=== PATIENT | male | born 1965 | race African-American/Black ===

== ENCOUNTER 2018-01-05 15:57 | Emergency (ER) | payer SELFPAY ==
[2018-01-05] MEDS ORDERED: HYDROCODONE/ACETAMINOPHEN 5-325 MG TABLET PO ONE (17:54)
--- NOTE | 2018-01-05 17:59 | ER Document Report ---
ED Medical Screen (RME) - General Chief Complaint: Low Back Pain Stated Complaint: BACK PAIN, LEG NUMBNESS Time Seen by Provider: 01/05/18 17:53 Notes: Patient states when he was driving into work this morning he felt a sudden severe pain in his low back and now he has numbness in both lower extremities that make walking difficult. He denies any problems with urination or bowel movement. He denies any known injuries. No recent fevers. He states he does have a history of degenerative disc disease in his neck that required surgery. TRAVEL OUTSIDE OF THE [place] IN LAST 30 DAYS: No - Related Data Allergies/Adverse Reactions: No Known Allergies Allergy (Verified 03/12/14 15:35) Past Medical History - Social History Chew tobacco use (# tins/day): No Frequency of alcohol use: Occasional Drug Abuse: None - Past Medical History Cardiac Medical History: Reports: Hx Hypertension Pulmonary Medical History: Denies: Hx Tuberculosis Renal/ Medical History: Denies: Hx Peritoneal Dialysis GI Medical History: Reports: Hx Gastroesophageal Reflux Disease Psychiatric Medical History: Denies: Hx Depression Past Surgical History: Reports: Hx Orthopedic Surgery - cervical - Immunizations Hx Diphtheria, Pertussis, Tetanus Vaccination: Yes Physical Exam - Vital signs Vitals: Temp Pulse Resp BP Pulse Ox 98.8 F 95 16 121/63 93 01/05/18 16:38 01/05/18 16:38 01/05/18 16:38 01/05/18 16:38 01/05/18 16:38 Course - Vital Signs Vital signs: Temp Pulse Resp BP Pulse Ox 98.8 F 95 16 121/63 93 01/05/18 16:38 01/05/18 16:38 01/05/18 16:38 01/05/18 16:38 01/05/18 16:38
--- NOTE | 2018-01-05 18:21 | RADIOLOGY REPORT (SQ) ---
EXAM DESCRIPTION: L SPINE 2 VIEWS COMPLETED DATE/TIME: 01/05/2018 6:12 pm REASON FOR STUDY: pain COMPARISON: None. NUMBER OF VIEWS: Two views. TECHNIQUE: AP and lateral radiographic images acquired of the lumbar spine. LIMITATIONS: None. FINDINGS: MINERALIZATION: Normal. SEGMENTATION: Normal. No transitional anatomy. ALIGNMENT: Normal. VERTEBRAE: Maintained height. No fracture or worrisome bone lesion. DISCS: Scattered osteophytes. No disc space narrowing. POSTERIOR ELEMENTS: Pedicles and facets are intact. No pars defect or posterior arch defects. HARDWARE: None in the spine. PARASPINAL SOFT TISSUES: Normal. PELVIS: Intact as visualized. No fractures or worrisome bone lesions. SI joints intact. OTHER: No other significant finding. IMPRESSION: No acute findings. Mild degenerative changes. TECHNICAL DOCUMENTATION: JOB ID: [id number] [employer]- All Rights Reserved Reading location - IP/workstation name: [email or web address]
[2018-01-05 18:31] LABS: ABSOLUTE BASOPHILS # (AUTO) 0.1 10^3/uL (0.0-0.2); ABSOLUTE EOSINOPHILS # (AUTO) 0.2 10^3/uL (0.0-0.6); ABSOLUTE LYMPHOCYTES (AUTO) 2.6 10^3/uL (0.5-4.7); ABSOLUTE MONOCYTES (AUTO) 0.6 10^3/uL (0.1-1.4); ABSOLUTE NEUT (AUTO) 5.5 10^3/uL (1.7-8.2); BASOPHILS % (AUTO) 0.6 % (0-2); EOSINOPHILS % (AUTO) 1.7 % (0-6); HEMATOCRIT 43.3 % (37.9-51.0); HEMOGLOBIN 14.8 g/dL (13.5-17.0); LYMPHOCYTES % (AUTO) 28.8 % (13-45); MEAN CORPUSCULAR HEMOGLOBIN 27.1 pg (27.0-33.4); MEAN CORPUSCULAR HGB CONC 34.2 g/dL (32.0-36.0); MEAN CORPUSCULAR VOLUME 79 fl (80-97); MONOCYTES % (AUTO) 6.6 % (3-13); PLATELET COUNT 283 10^3/uL (150-450); RED BLOOD COUNT 5.48 10^6/uL (4.35-5.55); RED CELL DISTRIBUTION WIDTH 13.9 % (11.5-14.0); SEGMENTED NEUTROPHILS % (AUTO) 62.3 % (42-78); TOTAL CELLS COUNTED % (AUTO) 100 %; WHITE BLOOD COUNT 8.9 10^3/uL (4.0-10.5)
[2018-01-05 18:54] LABS: ALANINE AMINOTRANSFERASE 53 U/L (21-72); ALBUMIN 4.5 g/dL (3.5-5.0); ALCOHOL 155 mg/dL (NONE DETECTED); ALKALINE PHOSPHATASE 68 U/L (38-126); ASPARTATE AMINO TRANSFERASE 35 U/L (17-59); BLOOD UREA NITROGEN 16 mg/dL (7-20); CALCIUM 9.7 mg/dL (8.4-10.2); CARBON DIOXIDE 20 mmol/L (22-30); CHLORIDE 109 mmol/L (98-107); GLUCOSE 101 mg/dL (75-110); POTASSIUM 4.2 mmol/L (3.6-5.0); TOTAL PROTEIN 7.6 g/dL (6.3-8.2)
[2018-01-05 19:00] LABS: ANION GAP 18 (5-19); BILIRUBIN,TOTAL < 0.1 mg/dL (0.2-1.3); SODIUM 146.5 mmol/L (137-145)
[2018-01-05] MEDS ORDERED: KETOROLAC TROMETHAMINE 60 MG/2 ML SDV IM ONE (19:55)
[2018-01-05] MEDS ORDERED: PREDNISONE 20 MG TABLET PO ONE (19:55)
[2018-01-05] MEDS ORDERED: LIDOCAINE 5% (700 MG) TRANSDERMAL ADH..PATCH TP ONE (20:03)
--- NOTE | 2018-01-05 20:06 | ER Document Report ---
ED General - General Chief Complaint: Low Back Pain Stated Complaint: BACK PAIN, LEG NUMBNESS Time Seen by Provider: 01/05/18 17:53 TRAVEL OUTSIDE OF THE [place] IN LAST 30 DAYS: No - HPI Patient complains to provider of: Low back pain Notes: Patient coming in for low back pain states history of chronic back pain exacerbated over the last 24 hours now with some numbness down his left leg. Patient denies any fevers chills nausea vomiting denies any drug use. Patient denies any alcohol use. Patient denies any acute trauma. Patient states no relief with his measures at home taking Tylenol. Patient otherwise sitting on the edge of bed resting comfortably. Patient states symptoms started in the bottom of foot that now is going down the back of his leg. Patient describes the pain as achy. Denies any bowel or bladder incontinence. Denies any saddle anesthesias - Related Data Allergies/Adverse Reactions: No Known Allergies Allergy (Verified 03/12/14 15:35) Past Medical History - Social History Smoking Status: Current Every Day Smoker Chew tobacco use (# tins/day): No Frequency of alcohol use: Occasional Drug Abuse: None Family History: Reviewed & Not Pertinent Patient has suicidal ideation: No Patient has homicidal ideation: No - Past Medical History Cardiac Medical History: Reports: Hx Hypertension Pulmonary Medical History: Denies: Hx Tuberculosis Renal/ Medical History: Denies: Hx Peritoneal Dialysis GI Medical History: Reports: Hx Gastroesophageal Reflux Disease Psychiatric Medical History: Denies: Hx Depression Past Surgical History: Reports: Hx Orthopedic Surgery - cervical - Immunizations Hx Diphtheria, Pertussis, Tetanus Vaccination: Yes Review of Systems - Review of Systems Constitutional: No symptoms reported EENT: No symptoms reported Cardiovascular: No symptoms reported Respiratory: No symptoms reported Gastrointestinal: No symptoms reported Genitourinary: No symptoms reported Male Genitourinary: No symptoms reported Musculoskeletal: Back pain Skin: No symptoms reported Hematologic/Lymphatic: No symptoms reported Neurological/Psychological: No symptoms reported -: Yes All other systems reviewed and negative Physical Exam - Vital signs Vitals: Temp Pulse Resp BP Pulse Ox 98.8 F 95 16 121/63 93 01/05/18 16:38 01/05/18 16:38 01/05/18 16:38 01/05/18 16:38 01/05/18 16:38 Interpretation: Normal - General General appearance: Appears well, Alert - HEENT Head: Normocephalic, Atraumatic Eyes: Normal Pupils: PERRL - Respiratory Respiratory status: No respiratory distress Chest status: Nontender Breath sounds: Normal Chest palpation: Normal - Cardiovascular Rhythm: Regular Heart sounds: Normal auscultation Murmur: No - Abdominal Inspection: Normal Distension: No distension Bowel sounds: Normal Tenderness: Nontender Organomegaly: No organomegaly - Back Back: Normal, Tender - Tenderness to palpation of the midline spine L3-L4 no signs of trauma no bruising no abrasions no step-off no deformity - Extremities General upper extremity: Normal inspection, Nontender, Normal color, Normal ROM , Normal temperature General lower extremity: Normal inspection, Nontender, Normal color, Normal ROM , Normal temperature, Normal weight bearing. No: Cinthia's sign - Neurological Neuro grossly intact: Yes Cognition: Normal Orientation: AAOx4 Randi Coma Scale Eye Opening: Spontaneous Randi Coma Scale Verbal: Oriented Randi Coma Scale Motor: Obeys Commands Randi Coma Scale Total: 15 Speech: Normal Motor strength normal: LUE, RUE, LLE, RLE Sensory: Normal Knee - Reflex grade: 2 = Normal - Psychological Associated symptoms: Normal affect, Normal mood - Skin Skin Temperature: Warm Skin Moisture: Dry Skin Color: Normal Course - Re-evaluation Re-evalutation: 01/05/18 23:09 The patient presents with low back pain without signs of spinal cord compression , cauda equina syndrome, infection, aneurysm, or other serious etiology. The patient is neurologically intact. Given the extremely low risk of these diagnoses further testing and evaluation for these possibilities does not appear to be indicated at this time. The patient has been instructed to return if the symptoms worsen or change in any way. X-rays not show any acute pathology. Laboratory studies were performed showing patient was acutely intoxicated with alcohol. Patient continues to deny any alcohol use did evaluate the patient's narcotic database which did not show any signs of pain medication. Patient was given 2 [place] is in triage. Explained patient to continue to take Tylenol Motrin for pain control will start patient on steroids due to his sciatic-like symptoms patient will be discharged home also encouraged patient use [id number] lidocaine patches lidocaine creams. - Vital Signs Vital signs: Temp Pulse Resp BP Pulse Ox 99 F 93 16 129/86 H 93 01/05/18 20:56 01/05/18 20:56 01/05/18 20:56 01/05/18 20:56 01/05/18 20:56 - Laboratory Result Diagrams: 01/05/18 18:16 01/05/18 18:16 Laboratory results interpreted by me: 01/05/18 01/05/18 01/05/18 18:16 18:16 19:53 MCV 79 L Sodium 146.5 H Chloride 109 H Carbon Dioxide 20 L Total Bilirubin < 0.1 L Urine Ketones TRACE H Ur Leukocyte Esterase SMALL H Discharge - Discharge Clinical Impression: Acute alcohol intoxication Low back pain Qualifiers: Chronicity: acute Back pain laterality: unspecified Sciatica presence: unspecified whether sciatica present Qualified Code(s): M54.5 - Low back pain Condition: Good Disposition: HOME, SELF-CARE Instructions: Ice Packs ([facility]), Low Back Pain ([facility]), Oral Narcotic Medication ( [facility]), Stretching Exercises for the Back ([facility]), Warm Packs ([facility]) Additional Instructions: Follow-up with your primary care physician. Your x-rays did not show any acute pathology for your back pain. We recommend using ice packs warm packs to also help out with the pain. He may also pharmacist about [id number] lidocaine cream or lidocaine patches to help out with your back pain. Return to ER for any concerns. Prescriptions: Prednisone [Deltasone 20 mg Tablet] 2 tab PO DAILY 5 Days tablet Tramadol HCl [Ultram 50 mg Tablet] 50 mg PO ASDIR PRN #10 tablet PRN Reason: Forms: Return to Work
[2018-01-05 20:08] LABS: APPEARANCE,URINE SLIGHTLY-CLOUDY; BILIRUBIN,URINE NEGATIVE (NEGATIVE); COLOR,URINE YELLOW; GLUCOSE, URINE NEGATIVE (NEGATIVE); KETONES,URINE TRACE mg/dL (NEGATIVE); LEUKOCYTE ESTERASE,URINE SMALL (NEGATIVE); NITRITE,URINE NEGATIVE (NEGATIVE); PROTEIN,URINE NEGATIVE (NEGATIVE); URINE SPECIFIC GRAVITY 1.023; UROBILINOGEN,URINE NEGATIVE mg/dL (<2.0)
[2018-01-05 20:57] VITALS: BP 129/86
== END 2018-01-05 20:57 | disposition home or self-care (01) ==
LOC: ER 15:57
DX: M54.5 Low back pain (principal); F10.129 Alcohol abuse with intoxication, unspecified; R20.0 Anesthesia of skin; F17.200 Nicotine dependence, unspecified, uncomplicated; I10 Essential (primary) hypertension
CPT/HCPCS: 99284; 96372; 36415; 80307; 85025; 80053; 81001; 72100; J1885; J7512

== ENCOUNTER 2019-03-09 17:56 | Emergency (ER) | payer SELFPAY ==
[2019-03-09] MEDS ORDERED: ACETAMINOPHEN 325 MG TABLET PO ONE (20:03)
[2019-03-09] MEDS ORDERED: SILVER SULFADIAZINE 1% CREAM 400 GM TP PRN (20:03)
[2019-03-09] MEDS ORDERED: IBUPROFEN 600 MG TABLET PO ONE (20:03)
--- NOTE | 2019-03-09 20:04 | ER Document Report ---
HPI - HPI Time Seen by Provider: 03/09/19 19:37 Pain Level: 4 Context: Patient is a 53-year-old male who presents to the emergency department with a burn to his right medial forearm. He was grilling and he burned his arm on the grill. He states he took some Zyrtec because he was stung by wasp also. He denies any pain from the wasp or any anaphylactic reaction. - ROS Notes: REVIEW OF SYSTEMS: CONSTITUTIONAL : Denies recent illness. Denies recent unintentional weight loss. Denies fever, chills, or sweats. EENT: Denies eye, ear, throat, or mouth pain, discharge, or symptoms. Denies nasal or sinus congestion. CARDIOVASCULAR: Denies chest pain. RESPIRATORY: Denies shortness of breath, cough, congestion, difficulty breathing, or wheezing. GASTROINTESTINAL: Denies nausea, vomiting, and diarrhea. Denies abdominal pain. Denies constipation. GENITOURINARY: Denies difficulty urinating, burning, blood in urine, urgency or frequency. MUSCULOSKELETAL: Denies neck and back pain. Denies joint pain or swelling. SKIN: See HPI HEMATOLOGIC : Denies easy bruising or bleeding. LYMPHATIC: Denies swollen, painful, enlarged glands. NEUROLOGICAL: Denies no numbness or tingling denies weakness. Denies headache. Denies altered mental status. Denies alteration in speech. PSYCHIATRIC: Denies stress, anxiety, alteration in sleep patterns, or depression. All other systems reviewed and negative. - REPRODUCTIVE Reproductive: DENIES: : - MUSCULOSKELETAL Musculoskeletal: REPORTS: Extremity pain - RUE Past Medical History - Social History Smoking Status: Current Every Day Smoker Chew tobacco use (# tins/day): Yes Drug Abuse: None Family History: Reviewed & Not Pertinent Patient has suicidal ideation: No Patient has homicidal ideation: No - Past Medical History Cardiac Medical History: Reports: Hx Hypertension Pulmonary Medical History: Denies: Hx Tuberculosis Renal/ Medical History: Denies: Hx Peritoneal Dialysis GI Medical History: Reports: Hx Gastroesophageal Reflux Disease Psychiatric Medical History: Denies: Hx Depression Past Surgical History: Reports: Hx Orthopedic Surgery - cervical - Immunizations Hx Diphtheria, Pertussis, Tetanus Vaccination: Yes Vertical Provider Document - CONSTITUTIONAL Notes: PHYSICAL EXAMINATION: GENERAL: Appears well, healthy, well-nourished, no acute distress. HEAD: Normocephalic, atraumatic. EYES: PERRL, conjunctiva normal, all extraocular movements intact, sclera nonicteric ENT: Moist mucous membranes. NECK: Supple, no noticeable swelling, redness, rash. Normal range of motion. LUNGS: Equal breath sounds bilaterally and clear to auscultation. No wheezes rales or rhonchi. CARDIOVASCULAR: S1-S2, regular rate, regular rhythm. Radial pulses 2+, normal. ABDOMEN: Normoactive bowel sounds. Soft, nontender, no guarding, no rebound tenderness, and no masses palpated. EXTREMITIES: Normal strength and range of motion, no pitting or edema. No cyanosis. NEUROLOGICAL: Moves all extremities upon command. Strength 5/5 in all extremities. PSYCH: Normal mood, normal affect. SKIN: Warm, dry. First and second-degree belcher noted to right forearm from barbecue grill. Normal skin turgor. - INFECTION CONTROL TRAVEL OUTSIDE OF THE [place] IN LAST 30 DAYS: No Course - Re-evaluation Re-evalutation: 03/09/19 20:04 She will be given Silvadene cream, ibuprofen, and Tylenol. He will follow-up with [facility] or [facility] in regards to this visit. Follow-up precautions were given. Verbal discharge instructions were given to the patient. They verbalized understanding. They are stable for discharge. - Vital Signs Vital signs: Temp Pulse Resp BP Pulse Ox 99.1 F 101 H 18 153/90 H 97 03/09/19 17:59 03/09/19 17:59 03/09/19 17:59 03/09/19 17:59 03/09/19 17:59 Discharge - Discharge Clinical Impression: Burn Condition: Stable Disposition: HOME, SELF-CARE Instructions: Belcher ([facility]), Silvadene Cream ([facility]) Additional Instructions: You were seen here in the emergency department after a burn. You are being provided with Silvadene cream. Please apply the Silvadene 4 times a day to your belcher. You can take Tylenol 1000 mg and ibuprofen 600 mg every 6 hours for your pain. You can follow-up with one of the clinics below in regards to this visit. Referrals: [facility] [Provider Group] - Follow up as needed [facility] [Provider Group] - Follow up as needed
[2019-03-09 20:35] VITALS: BP 141/89
== END 2019-03-09 20:35 | disposition home or self-care (01) ==
LOC: ER 17:56
DX: T22.211A Burn of second degree of right forearm, initial encounter (principal); X19.XXXA Contact with other heat and hot substances, initial encounter; Y93.G2 Activity, grilling and smoking food; F17.200 Nicotine dependence, unspecified, uncomplicated; I10 Essential (primary) hypertension
CPT/HCPCS: 99283; J3490

== ENCOUNTER 2019-05-29 13:58 | Emergency (ER) | payer SELFPAY ==
[2019-05-29 14:04] VITALS: BP 131/79
--- NOTE | 2019-05-29 14:18 | ER Document Report ---
ED Medical Screen (RME) - General Chief Complaint: Back Pain Stated Complaint: LEG PAIN,DIZZINESS,ALTERED MENTAL STATUS Time Seen by Provider: 05/29/19 14:12 Mode of Arrival: Wheelchair Information source: Patient Notes: Patient states when he woke up this morning to go to work he has numbness in both lower extremities that make walking difficult. Reports history of bulging disc. He denies any problems with urination or bowel movement. He denies any known injuries. Denies trauma. He reports that he worked on his trailer today and was on his back. No recent fevers. He states he does have a history of degenerative disc disease in his neck that required surgery. I have greeted and performed a rapid initial assessment of this patient. A comprehensive ED assessment and evaluation of the patient, analysis of test results and completion of the medical decision making process will be conducted by additional ED providers. Dictation of this chart was performed using voice recognition software; therefore, there may be some unintended grammatical errors. TRAVEL OUTSIDE OF THE [place] IN LAST 30 DAYS: No - Related Data Allergies/Adverse Reactions: No Known Allergies Allergy (Verified 03/09/19 17:56) Past Medical History - Social History Frequency of alcohol use: Occasional - Past Medical History Cardiac Medical History: Reports: Hx Hypertension Pulmonary Medical History: Denies: Hx Tuberculosis Renal/ Medical History: Denies: Hx Peritoneal Dialysis GI Medical History: Reports: Hx Gastroesophageal Reflux Disease Psychiatric Medical History: Denies: Hx Depression Past Surgical History: Reports: Hx Orthopedic Surgery - cervical - Immunizations Hx Diphtheria, Pertussis, Tetanus Vaccination: Yes Physical Exam - Vital signs Vitals: Temp Pulse Resp BP Pulse Ox 98.1 F 97 16 131/79 H 97 05/29/19 14:04 05/29/19 14:04 05/29/19 14:04 05/29/19 14:04 05/29/19 14:04 Course - Vital Signs Vital signs: Temp Pulse Resp BP Pulse Ox 98.1 F 97 16 131/79 H 97 05/29/19 14:04 05/29/19 14:04 05/29/19 14:04 05/29/19 14:04 05/29/19 14:04
[2019-05-29 15:00] LABS: APPEARANCE,URINE CLEAR; BILIRUBIN,URINE NEGATIVE (NEGATIVE); COLOR,URINE STRAW; GLUCOSE, URINE NEGATIVE (NEGATIVE); KETONES,URINE NEGATIVE (NEGATIVE); LEUKOCYTE ESTERASE,URINE TRACE (NEGATIVE); NITRITE,URINE NEGATIVE (NEGATIVE); PROTEIN,URINE NEGATIVE (NEGATIVE); URINE SPECIFIC GRAVITY 1.002; UROBILINOGEN,URINE NEGATIVE mg/dL (<2.0)
[2019-05-29 15:11] LABS: ABSOLUTE BASOPHILS # (AUTO) 0.1 10^3/uL (0.0-0.2); ABSOLUTE EOSINOPHILS # (AUTO) 0.1 10^3/uL (0.0-0.6); ABSOLUTE LYMPHOCYTES (AUTO) 2.4 10^3/uL (0.5-4.7); ABSOLUTE MONOCYTES (AUTO) 0.6 10^3/uL (0.1-1.4); ABSOLUTE NEUT (AUTO) 5.7 10^3/uL (1.7-8.2); BASOPHILS % (AUTO) 0.8 % (0-2); EOSINOPHILS % (AUTO) 1.5 % (0-6); HEMATOCRIT 43.4 % (37.9-51.0); HEMOGLOBIN 14.6 g/dL (13.5-17.0); LYMPHOCYTES % (AUTO) 26.7 % (13-45); MEAN CORPUSCULAR HEMOGLOBIN 26.6 pg (27.0-33.4); MEAN CORPUSCULAR HGB CONC 33.7 g/dL (32.0-36.0); MEAN CORPUSCULAR VOLUME 79 fl (80-97); MONOCYTES % (AUTO) 6.9 % (3-13); PLATELET COUNT 268 10^3/uL (150-450); RED BLOOD COUNT 5.49 10^6/uL (4.35-5.55); RED CELL DISTRIBUTION WIDTH 13.5 % (11.5-14.0); SEGMENTED NEUTROPHILS % (AUTO) 64.1 % (42-78); TOTAL CELLS COUNTED % (AUTO) 100 %; WHITE BLOOD COUNT 8.8 10^3/uL (4.0-10.5)
[2019-05-29 15:18] LABS: URINE AMPHETAMINES SCREEN NEGATIVE; URINE BARBITURATES SCREEN NEGATIVE; URINE BENZODIAZEPINES SCREEN NEGATIVE; URINE COCAINE SCREEN NEGATIVE; URINE MARIJUANA (THC) SCREEN NEGATIVE; URINE METHADONE SCREEN NEGATIVE; URINE PHENCYCLIDINE SCREEN NEGATIVE
[2019-05-29 15:35] LABS: ALBUMIN 4.9 g/dL (3.5-5.0); ALCOHOL 239 mg/dL (NONE DETECTED); ALKALINE PHOSPHATASE 64 U/L (38-126); ANION GAP 13 (5-19); ASPARTATE AMINO TRANSFERASE 39 U/L (17-59); BILIRUBIN,DIRECT 0.1 mg/dL (0.0-0.4); BILIRUBIN,TOTAL 0.3 mg/dL (0.2-1.3); BLOOD UREA NITROGEN 10 mg/dL (7-20); CALCIUM 9.7 mg/dL (8.4-10.2); CARBON DIOXIDE 23 mmol/L (22-30); CHLORIDE 109 mmol/L (98-107); GLUCOSE 108 mg/dL (75-110); POTASSIUM 4.6 mmol/L (3.6-5.0)
== END 2019-05-29 17:19 | disposition left against medical advice (07) ==
LOC: ER 13:58
DX: R20.0 Anesthesia of skin (principal); I10 Essential (primary) hypertension; Z87.39 Personal history of other diseases of the musculoskeletal system and connective tissue; Z98.890 Other specified postprocedural states; Z53.20 Procedure and treatment not carried out because of patient's decision for unspecified reasons
CPT/HCPCS: 36415; 80053; 80307; 81001; 85025; 99281

== ENCOUNTER 2019-05-29 22:07 | Emergency (ER) | payer SELFPAY ==
[2019-05-29 22:24] VITALS: BP 112/71
--- NOTE | 2019-05-29 22:39 | ER Document Report ---
ED Medical Screen (RME) - General Chief Complaint: Back Pain Stated Complaint: BACK PAIN Time Seen by Provider: 05/29/19 22:35 Mode of Arrival: Wheelchair Information source: Patient Notes: 53-year-old male presents to the emergency department again for back pain reporting numbness and tingling in his bilateral legs. He was seen earlier in the emergency department labs were done patient was placed in room but was never evaluated by another provider. He returns now for same symptoms. Report he went home and took some [employer] pain medication and drink a beer and return. Patient has history of bulging disc. Reports he worked on a trailer yesterday on his back. Reports he woke up today with numbness tingling and can barely walk. Denied urinary bowel incontinence or retention. I have greeted and performed a rapid initial assessment of this patient. A comprehensive ED assessment and evaluation of the patient, analysis of test results and completion of the medical decision making process will be conducted by additional ED providers. Dictation of this chart was performed using voice recognition software; therefore, there may be some unintended grammatical errors. TRAVEL OUTSIDE OF THE [place] IN LAST 30 DAYS: No - Related Data Allergies/Adverse Reactions: No Known Allergies Allergy (Verified 03/09/19 17:56) Past Medical History - Social History Frequency of alcohol use: Heavy - Past Medical History Cardiac Medical History: Reports: Hx Hypertension Pulmonary Medical History: Denies: Hx Tuberculosis Renal/ Medical History: Denies: Hx Peritoneal Dialysis GI Medical History: Reports: Hx Gastroesophageal Reflux Disease Psychiatric Medical History: Denies: Hx Depression Past Surgical History: Reports: Hx Orthopedic Surgery - cervical - Immunizations Hx Diphtheria, Pertussis, Tetanus Vaccination: Yes Physical Exam - Vital signs Vitals: Temp Pulse Resp BP Pulse Ox 98.6 F 77 18 112/71 95 05/29/19 22:23 05/29/19 22:23 05/29/19 22:23 05/29/19 22:23 05/29/19 22:23 Course - Vital Signs Vital signs: Temp Pulse Resp BP Pulse Ox 98.6 F 77 18 112/71 95 05/29/19 22:23 05/29/19 22:23 05/29/19 22:23 05/29/19 22:23 05/29/19 22:23
== END 2019-05-30 03:07 | disposition left against medical advice (07) ==
LOC: ER 22:07
DX: M54.9 Dorsalgia, unspecified (principal); R20.0 Anesthesia of skin; R20.2 Paresthesia of skin; I10 Essential (primary) hypertension; Z87.39 Personal history of other diseases of the musculoskeletal system and connective tissue; Z98.890 Other specified postprocedural states; Z53.20 Procedure and treatment not carried out because of patient's decision for unspecified reasons
CPT/HCPCS: 99281

== ENCOUNTER 2020-06-05 21:21 | Emergency (ER) | payer SELFPAY ==
[2020-06-06] MEDS ORDERED: HYDROCODONE/ACETAMINOPHEN 5-325 MG TABLET PO ONE (00:30)
[2020-06-06] MEDS ORDERED: LIDOCAINE 1% INJ-PF (10 MG/ML) 30 ML SDV INJ ONE (00:31)
[2020-06-06] MEDS ORDERED: DIPH/PERTUSS(ACELL)/TETANUS VAC/PF 0.5 ML SYR (>=10YO) IM ONE (00:31)
--- NOTE | 2020-06-06 00:33 | ER Document Report ---
ED Medical Screen (RME) - General Chief Complaint: Facial Injury Stated Complaint: FELL / FACIAL LACERATION Time Seen by Provider: 06/06/20 00:30 Mode of Arrival: Ambulatory Information source: Patient Notes: 54-year-old -Turk[place] male tripped on a phone cord fell and hit his head against a wall. Sustained a 1/2 cm laceration to the right forehead. No active bleeding. Did not lose consciousness. Is not vomiting. Is not on blood thinners. Last tetanus unknown. Exam General: No acute distress Cardiac regular rate and rhythm Pulmonary clear to auscultation Derm: 1.5 cm laceration right forehead. No active bleeding. Neuro no focal deficits I have greeted and performed a rapid initial assessment of this patient. A comprehensive ED assessment and evaluation of the patient, analysis of test results and completion of the medical decision making process will be conducted by additional ED providers. TRAVEL OUTSIDE OF THE [place] IN LAST 30 DAYS: No - Related Data Allergies/Adverse Reactions: No Known Allergies Allergy (Verified 03/09/19 17:56) Past Medical History - Past Medical History Cardiac Medical History: Reports: Hx Hypertension Pulmonary Medical History: Denies: Hx Tuberculosis Renal/ Medical History: Denies: Hx Peritoneal Dialysis GI Medical History: Reports: Hx Gastroesophageal Reflux Disease Psychiatric Medical History: Denies: Hx Depression Past Surgical History: Reports: Hx Orthopedic Surgery - cervical - Immunizations Hx Diphtheria, Pertussis, Tetanus Vaccination: Yes Physical Exam - Vital signs Vitals: Temp Pulse Resp BP Pulse Ox 98.1 F 92 18 143/82 H 93 06/05/20 22:22 06/05/20 22:22 06/05/20 22:22 06/05/20 22:22 06/05/20 22:22 Course - Vital Signs Vital signs: Temp Pulse Resp BP Pulse Ox 98.1 F 92 18 143/82 H 93 06/05/20 22:22 06/05/20 22:22 06/05/20 22:22 06/05/20 22:22 06/05/20 22:22
[2020-06-06] MEDS ORDERED: LIDOCAINE 1%/EPINEPHRINE INJ 20 ML VIAL INJ ONE (01:33)
--- NOTE | 2020-06-06 01:40 | ER Document Report ---
ED Head/Face/Scalp Injury - General Chief Complaint: Laceration Stated Complaint: FELL / FACIAL LACERATION Time Seen by Provider: 06/06/20 00:30 Primary Care Provider: KYA PEREZ MD [COMMUNITY BASED STAFF] - Follow up as needed Mode of Arrival: Ambulatory Notes: CHIEF COMPLAINT: Laceration to face HPI: 54-year-old male presenting for laceration to the right eyebrow. Tripped on a cord in the house struck a wall no loss of consciousness. Complains of headache. Not on blood thinners. Denies other injuries. ROS: See HPI - all other systems were reviewed and are otherwise negative Constitutional: no fever Eyes: no drainage, no blurred vision ENT: no runny nose, no sore throat GI: no vomiting Integumentary: Positive laceration Musculoskeletal: no extremity pain or swelling Neurological: no numbness/tingling, no weakness, positive headache MEDICATIONS: I agree with the patient medications as charted by the RN. ALLERGIES: I agree with the allergies as charted by the RN. PAST MEDICAL HISTORY/PAST SURGICAL HISTORY: Reviewed and agree as charted by RN. SOCIAL HISTORY: Reviewed and agree as charted by RN. FAMILY HISTORY: No significant familial comorbid conditions directly related to patient complaint EXAM: Reviewed vital signs as charted by RN. CONSTITUTIONAL: Alert and oriented and responds appropriately to questions. Well-appearing; well-nourished HEAD: Normocephalic; 1 cm diagonal laceration through the medial aspect of the right eyebrow EYES: PERRL; Conjunctivae clear, sclerae non-icteric ENT: normal nose; no rhinorrhea; moist mucous membranes; pharynx without lesions noted, no uvula edema or deviation, no tonsillar hypertrophy, phonation normal NECK: Supple without meningismus; non-tender; no cervical lymphadenopathy, no masses CARD: symmetric distal pulses RESP: Normal chest excursion without splinting or tachypnea ABD/GI:non-distended BACK: The back appears normal EXT: Normal ROM in all joints; no cyanosis, no effusions, no edema SKIN: Normal color for age and race; warm; dry; good turgor NEURO: Moves all extremities equally; Motor and sensory function intact PSYCH: The patient's mood and manner are appropriate. Grooming and personal hygiene are appropriate. MDM: 54-year-old male with a laceration to the right eyebrow that will require repair. Tetanus was updated. Answering all questions appropriately. Not on blood thinners. TRAVEL OUTSIDE OF THE [place] IN LAST 30 DAYS: No - Related Data Allergies/Adverse Reactions: No Known Allergies Allergy (Verified 03/09/19 17:56) Home Medications: terry, mucinex Past Medical History - General Information source: Patient - Social History Smoking Status: Current Every Day Smoker Family History: Reviewed & Not Pertinent - Past Medical History Cardiac Medical History: Reports: Hx Hypertension Pulmonary Medical History: Denies: Hx Tuberculosis Renal/ Medical History: Denies: Hx Peritoneal Dialysis GI Medical History: Reports: Hx Gastroesophageal Reflux Disease Psychiatric Medical History: Denies: Hx Depression Past Surgical History: Reports: Hx Orthopedic Surgery - cervical - Immunizations Hx Diphtheria, Pertussis, Tetanus Vaccination: Yes Physical Exam - Vital signs Vitals: Temp Pulse Resp BP Pulse Ox 98.1 F 92 18 143/82 H 93 06/05/20 22:22 06/05/20 22:22 06/05/20 22:22 06/05/20 22:22 06/05/20 22:22 Course - Vital Signs Vital signs: Temp Pulse Resp BP Pulse Ox 98.1 F 92 18 143/82 H 93 06/05/20 22:22 06/05/20 22:22 06/05/20 22:22 06/05/20 22:22 06/05/20 22:22 Procedures - Laceration/Wound Repair Right Face Time completed: 01:58 Wound length (cm): 1 Wound's Depth, Shape: Linear Laceration pre-procedure: Sterile PPE donned, Sterile drapes applied, Other - saline Anesthetic type: 1% Lidocaine w/epi Volume Anesthetic (mLs): 1 Wound explored: Clean Irrigated w/ Saline (mLs): 250 Wound Repaired With: Sutures Suture Size/Type: 5:0, Prolene Number of Sutures: 3 Post-procedure wound care: Sterile dressing applied Post-procedure NV exam normal: Yes Complications: No Discharge - Discharge Clinical Impression: Laceration of eyebrow, right Qualifiers: Encounter type: initial encounter Qualified Code(s): S01.111A - Laceration without foreign body of right eyelid and periocular area, initial encounter Condition: Stable Disposition: HOME, SELF-CARE Instructions: Laceration Care ([facility]) Additional Instructions: Motrin or Tylenol for pain. Sutures out as directed, 6 days Keep the area as clean and dry as possible applying antibiotic ointment and dressing daily. Return for any redness, discharge, swelling or signs of infection. Referrals: KYA PEREZ MD [COMMUNITY BASED STAFF] - Follow up as needed
[2020-06-06 02:07] VITALS: BP 135/91
== END 2020-06-06 02:09 | disposition home or self-care (01) ==
LOC: ER 21:21
DX: S01.111A Laceration without foreign body of right eyelid and periocular area, initial encounter (principal); R51 Headache; W01.198A Fall on same level from slipping, tripping and stumbling with subsequent striking against other object, initial encounter; Y92.009 Unspecified place in unspecified non-institutional (private) residence as the place of occurrence of the external cause; I10 Essential (primary) hypertension; F17.200 Nicotine dependence, unspecified, uncomplicated; Z23 Encounter for immunization; Z79.899 Other long term (current) drug therapy
CPT/HCPCS: 99283; 96372; 90715; 12011; J3490